=== PATIENT | male | born 1995 | race American Indian/Alaskan Native ===

== ENCOUNTER 2016-07-29 12:51 | Emergency (ER) | payer BC, OTHER ==
[2016-07-29 12:59] VITALS: RESP 18
[2016-07-29] MEDS ORDERED: Lidocaine 5% Patch TD STA (13:19)
[2016-07-29] MEDS ORDERED: Lidocaine 5% Patch TD ONE (13:25)
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
[2016-07-29 15:16] VITALS: BP 124/72; PULSE 85; TEMP 98.2; O2SAT 99
== END 2016-07-29 15:17 | disposition home or self-care (01) ==
LOC: SUPCPDRO 12:51 → C.ER 12:51
DX: M54.89 Other dorsalgia (principal)